=== PATIENT | female | born 1985 | race Hispanic/Latino ===

== ENCOUNTER 2022-01-01 23:45 | Emergency (ER) | payer OTHER ==
[~2022-01-01] VITALS: Ht 149.9 cm; Wt 59.4 kg
[2022-01-02] MEDS ORDERED: ACETAMINOPHEN 325 MG TAB PO ONE (00:45)
[2022-01-02] MEDS ORDERED: ACETAMINOPHEN 325 MG TAB ONE (00:54)
[2022-01-02] MEDS ORDERED: NAPROXEN250 MG PO (01:14)
[2022-01-02 01:16] VITALS: BP 115/77
== END 2022-01-02 01:23 | disposition home or self-care (01) ==
LOC: ER 01-02 00:09
DX: R07.89 Other chest pain (principal); V43.52XA Car driver injured in collision with other type car in traffic accident, initial encounter; Y92.488 Other paved roadways as the place of occurrence of the external cause
CPT/HCPCS: 71046; 99283